=== PATIENT | male | born 2005 | race Caucasian/White ===

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

== ENCOUNTER 2025-10-06 23:38 | Emergency (ER) | payer OTHER, BC, MEDICAID, SELFPAY ==
--- OUTSIDE RECORDS SUMMARY | 2025-10-06 23:45 | XMS_ITS | Clinical Summary ---
Author Organization [facility] Address [address] [place] [address] Care Team Providers Care Data Reviewer Name Role Phone Kirti Navas DO Primary Care Provider Allergies No known active allergies Medications minocycline (MINOCIN) 100 mg capsuleIndicati ons:Acne vulgaris Take 1 Capsule (100 mg) by mouth daily. 30 Capsule 07/11/2021 Active Clindamycin-Carlos zoyl Peroxide (Duac) 1.2 %(1 % base) -5 % GelIndications: Acne vulgaris Apply to affected area daily. 45 Gram 11 07/11/2021 Active cetirizine (ZyrTEC) 10 mg tabletIndicatio ns:Non-recurren t acute allergic otitis media of left ear Take 1 Tablet (10 mg) by mouth daily. 30 Tablet 2 02/16/2023 Active Active Problems No known active problems Social History Tobacco Use Types Packs/Day Years Used Date Smoking Tobacco: Some Days Cigarettes Smokeless Tobacco: Never Tobacco Cessation:Ready to Q uit: Not Asked; Counseling Given: Not Answered Alcohol Use Standard Drinks/Week Comments Yes 0 (1 standard drink = 0.6 oz pur e alcohol) occasionally Feeling Safe Answer Date Recorded Are you in a relationship wi th someone who hurts you emotionally and/or physically? No 05/26/2025 Sex and Gender Information Value Date Recorded Sex Assigned at Not on file Legal Sex Male 2:03 PM CDT Gender Identity Not on file Sexual Orientation Not on file Last Filed Vital Signs Vital Sign Reading Time Taken Comments Blood Pressure 113/84 05/26/2025 4:15 PM CDT Pulse 83 05/26/2025 4:15 PM CDT Temperature 36.3 C (97.3 F) 05/26/2025 3:38 PM CDT Respiratory Rate 16 05/26/2025 4:15 PM CDT Oxygen Saturation 97% 05/26/2025 4:15 PM CDT Inhaled Oxygen Concentration - - Weight 107.4 kg (236 lb 12.8 oz) 05/26/2025 3:38 PM CDT Height 180.3 cm (5' 11 ) 05/26/2025 3:38 PM CDT Body Mass Index 33.03 05/26/2025 3:38 PM CDT Plan of Treatment Health Maintenance Due Date Last Done Comments CHLAMYDIA SCREENING (ANNUAL) 11-24 YEARS 2016 HPV VACCINES (1 - Male 3-dose series) 2020 DTAP/TDAP/TD VACCINES (1 - Tdap) 2024 HEPATITIS B VACCINES (1 of 3 - 19+ 3-dose series) 09/08 Preventative Visit- Commercial 11/08/2024 INFLUENZA VACCINE (#1) 2025 Insurance [employer] [place] AETNA CHOICE POS [address] [facility] MEDICAID [facility] MEDICAID Care Teams Data Reviewer Relationship Specialty Start Date End Date Kirti Navas DO [address] [place] [address] PCP - General Family Practice 07/10/21
[2025-10-06 23:47] VITALS: BP 146/88; PULSE 78; RESP 16; TEMP 36.5; O2SAT 99; BMI 33.0
--- NOTE | 2025-10-07 00:17 | ED_ITS ---
HPI - Dental/Oral General: Chief complaint: Dental/Oral Stated complaint: left side dental abcess Time Seen by Provider: 10/06/25 23:44 History of Present Illness: Patient is a 20-year-old male who presents with a facial abscess that has developed a draining sinus tract through his cheek. He reports having a dental abscess for over a year, with the external facial manifestation appearing a few months ago. The patient states he has been manually draining the abscess as instructed by a previous provider, but this has only provided temporary relief. He denies receiving antibiotics specifically for this current infection. The patient is concerned about a possible staph infection, though he believes it is related to his dental abscess. He is requesting antibiotics as he will be traveling tomorrow and unable to see a dentist until he returns around [place] time (approximately one month from now). Related Data Previous Rx's ?Medication ?Instructions ?Recorded amoxicillin 875 mg tablet 875 mg PO BID 10 days #20 ta bs 04/28/23 fluconazole 150 mg tablet 150 mg PO DAILY 3 days #3 ta bs 04/28/23 (Diflucan) clindamycin HCl 300 mg capsule 300 mg PO TID 10 days # 30 caps 10/07/25 (Cleocin HCl) Allergies Allergy/AdvReac Type Severity Reaction Status Date / Time No Known Allergies Allergy Verified 10/06/25 23:50 [facility] ED [facility]: Medical History (Updated 10/07/25 @ 00:19 by Roverto Michaels DO) No pertinent past medical history Social History Smoking and tobacco/nicotine status: never used tobacco/nicotine Alcohol intake: never Substance/Drug Use: never Physical Exam Const: COMMON NORMALS: no acute distress GENERAL APPEARANCE: cooperative; not ill appearing and not frail appearing HENMT: COMMON NORMALS: normocephalic, atraumatic and Normal external nose present HEAD & SCALP: normocephalic and atraumatic NOSE: Normal external nose present OTHER: Dermal inclusion cyst present over left mandible. No fluctuance. No cellulitis. No evidence of dental abscess on my exam today. Eye: COMMON NORMALS: Equal, round and reactive pupils present and EOMs intact bilaterally PUPIL: Yes Equal, round and reactive pupils present Neck/C-Spine: GENERAL: Yes trachea midline Chest: CHEST: Yes Symmetrical chest wall rise Resp: COMMON NORMALS: normal respiratory effort, No retractions, No use of accessory muscles and clear to auscultation bilaterally AUSCULTATION: clear to auscultation bilaterally Cardio: COMMON NORMALS: regular rate and regular rhythm RATE: regular rate RHYTHM: regular rhythm GI: COMMON NORMALS: Normal to inspection, nondistended, normoactive bowel sounds present Neuro: CHRIS COMA SCALE: document GCS findings Charlton coma scale eye opening: Spontaneous Chris coma scale verbal response: Orientated Charl[place] coma scale motor response: Obey commands Charlton coma scale total score: 15 SENSORY EXAM: Yes extremities (intact) Psych: COMMON NORMALS: speech normal SPEECH: Yes normal speech Skin: COMMON NORMALS: no rashes or lesions noted GENERAL SKIN EXAM: no rashes or lesions noted Course Vital Signs: Vital signs: Vital Signs Temperature 97.7 F 10/06/25 23:47 Pulse Rate 79 10/07/25 00:54 Respiratory Rate 16 10/06/25 23:47 Blood Pressure 119/62 10/07/25 00:54 Pulse Oximetry 95 10/07/25 00:54 Oxygen Delivery Me thod Room Air 10/06/25 23:47 MDM - Dental/Oral Medical Decision Making No definite dental abscess observed on exam. He does have facial abscess that is nonfluctuant, small, with mild cellulitis. He will be prescribed clindamycin. ENT follow-up as this is a recurrent problem and may require cyst removal. To return for any worsening symptoms. Stable for discharge. No radiology studies performed this visit Discharge Plan Discharge Patient Disposition: Home Clinical Impression: Abscess of face Condition: Stable Prescriptions: New clindamycin HCl [Cleocin HCl] 300 mg capsule 300 mg PO TID 10 Days Qty: 30 0RF No Action fluconazole [Diflucan] 150 mg tablet 150 mg PO DAILY 3 Days Qty: 3 1RF amoxicillin 875 mg tablet 875 mg PO BID 10 Days Qty: 20 0RF Discharge Orders: Discharge ED (Routine); Ordered 10/07/25 Ordered By: Roverto Michaels Referrals: Kirti Navas DO [Primary Care Provider, Family Practice] Patient Instructions: Dental Abscess (ED), Abscess (ED), Opioid Safety, Pain Management, Patient Portal & [place] Instructions Activity Restrictions/Additional Instructions: Make an appointment with your dentist for when you return. Case management will contact you about an appointment with the ENT physician regarding the facial aspect of your abscess that is recurrent. Antibiotics as directed. Return for any problems. Print Language: Icelandic Coding Level of Care Code ED [employer] Manager for Austyn Sarah
[2025-10-07 00:54] VITALS: BP 119/62; PULSE 79; O2SAT 95
--- NOTE | 2025-10-09 08:07 | DCPLANNER ---
Referral sent to Dr. Raymond's office
== END 2025-10-07 00:59 | disposition home or self-care (01) ==
PROVIDERS: Emergency Provider Emergency Medicine; PCP Family Medicine
DX: L02.01 Cutaneous abscess of face (principal)
CPT/HCPCS: 99283; J9999